=== PATIENT | male | born 1940 | race Caucasian/White ===

== ENCOUNTER → 2018-12-29 | Outpatient (CLI) | payer MEDICARE ==
[~2018-12-29] MED LIST: FENTANYL PF 100 MCG/2ML IVPush ONE; LIDOCAINE/PF 1%, 30ML IV ONE; MIDAZOLAM 1 MG/ML, 5ML IVPush ONE
== END | disposition home or self-care (01) ==
LOC: ROC 07:04
PROVIDERS: ATTEND Radiology Radiation Oncology
DX: C61 Malignant neoplasm of prostate (principal)
CPT/HCPCS: 55876; 76942; 77332; 99156; A4648; J2250; J3010

== ENCOUNTER 2019-01-04 10:38 | Outpatient (CLI) | payer MEDICARE | END 2019-01-04 23:59 | disposition home or self-care (01) | LOC: CFH 10:38 | PROVIDERS: ATTEND Radiology Radiation Oncology | DX: C61 Malignant neoplasm of prostate (principal) | CPT/HCPCS: 72195 ==

== ENCOUNTER 2019-08-11 08:42 | Outpatient (CLI) | payer MEDICARE | END 2019-08-11 23:59 | disposition home or self-care (01) | LOC: ROC 08:42 | PROVIDERS: ATTEND Radiology Radiation Oncology | DX: C61 Malignant neoplasm of prostate (principal) | CPT/HCPCS: G0463 ==